=== PATIENT | female | born 1975 | race Caucasian/White ===

== ENCOUNTER 2021-01-11 09:24 | Emergency (ER) | payer OTHER, SELFPAY ==
--- NOTE | ~2021-01-11 | US_ITS ---
EXAMINATION: US venous doppler [facility] DATE: 01/11/2021 10:27 INDICATION: Left lower limb pain TECHNIQUE: Tong scale images without and with compression and Doppler images of the left lower extrem ity veins were obtained. COMPARISON: None FINDINGS: The left common femoral vein, profunda femoral vein, femoral vein, popliteal vein, peroneal trunk, posterior tibial veins, and greater saphenous vein are patent. There is thrombosis in a super ficial subcutaneous vein of the posterior calf. IMPRESSION: 1. No evidence of deep venous thrombosis. 2. Thrombosis in a superficial subcutaneous vein of the posterior calf. Reviewed, dictated and finalized at location A.
[2021-01-11 09:34] VITALS: BP 105/80; PULSE 74; RESP 17; TEMP 36.8; O2SAT 99
--- NOTE | 2021-01-11 09:50 | ED.LOWEXIN ---
HPI - Extremity Injury (Lower) General Chief Complaint: Extremity Injury, Lower Stated Complaint: ? L calf infection Time Seen by Provider: 01/11/21 09:39 Source: patient Mode of arrival: ambulatory Limitations: no limitations History of Present Illness HPI Narrative: Patient is a 45-year-old female who presents complaining of left lower extremity pain. Patient reports having endovenous laser ablation on 12/28/2020. She reports follow-up office visit last week. She reports increased pain, mild swelling and tenderness with palpation x1 day. Patient reports attempting to follow-up with Dr. Hoffmann who is out of the office at this time. She reports increased swelling left ambulation. She denies all other complaints at this time. She denies significant medical history. Related Data Allergies Allergy/AdvReac Type Severity Reaction Status Date / Time codeine Allergy Unknown Nausea Verified 01/11/21 09:43 Review of Systems Review of Systems: CONSTITUTIONAL: Denies fever, chills, or sweats. EYES: Denies visual changes, redness, or discharge. ENT: Denies rhinorrhea, congestion, sore throat, or otalgia. CARDIOVASCULAR: Denies chest pain, palpitations, or edema. RESPIRATORY: Denies cough or dyspnea. GASTROINTESTINAL: Denies abdominal pain, nausea, vomiting, or diarrhea. GENITOURINARY: Denies dysuria or hematuria. SKIN: Denies rash or itching. MUSCULOSKELETAL: Left lower extremity pain NEUROLOGIC: Denies headache, numbness, dizziness, or weakness. PSYCHIATRIC: Denies anxiety or depression. PMFSH Past Medical History Medical History Anxiety Social History Social History (Updated 01/11/21 @ 11:28 by KARIME Bajwa) Smoking status: Former smoker Smoking end date: 06/11/97 Alcohol intake: current Alcohol use details: Occasional Substance use: never Living arrangements: with family Comments At the time of signature, I have reviewed and agree with nursing past medical, surgical, social, and family history unless otherwise noted. Please see nursing chart for further information. There is no relevant family history pertinent to the presenting complaint. Exam Narrative: GENERAL: Well-appearing, well-nourished, and in no acute distress. HEAD: Normocephalic, atraumatic. EYES: EOMI. No redness or drainage. Conjunctiva are normal. ENT: Mucous membranes pink and moist. CHEST: No respiratory distress. HEART: Regular rate and rhythm. No murmur appreciated. Normal peripheral pulses. EXTREMITIES: Normal range of motion. Mild edema and tenderness with palpation to LLE, no warmth or erythema noted. SKIN: Warm, dry, no rash. NEURO: No focal deficits. Alert and oriented x3. Gait steady. PSYCH: Normal affect. No signs of depression or anxiety. Course Vital Signs Vital signs: Vital Signs Temperature 36.8 C 01/11/21 09:34 Pulse Rate 74 01/11/21 09:34 Respiratory Rate 17 01/11/21 09:34 Blood Pressure 105/80 01/11/21 09:34 Pulse Oximetry 99 01/11/21 09:34 Temperature 36.8 C 01/11/21 09:34 Pulse Rate 74 01/11/21 09:34 Respiratory Rate 17 01/11/21 09:34 Blood Pressure 105/80 01/11/21 09:34 Pulse Oximetry 99 01/11/21 09:34 Reviewed MDM - Extremity Injury (Lower) MDM Narrative Medical decision making narrative: Venous ultrasound of left lower extremity is negative for DVT. Venous ultrasound reports thrombosis in a superficial subcutaneous vein of the posterior calf. Discussed results with Maria L Alonzo PA-C of Dr. Hoffmann's office who reports normal findings and has no concerns. SCOT Lisa suggests patient use LAUREN and elevate extremity and call office today for follow up appointment. Patient is afebrile, nontoxic in appearance and labs are unremarkable. Patient is stable for discharge to home with outpatient follow-up as discussed. Differential Diagnosis Differential diagnosis: Likely other (Sprain, strain, fra
[2021-01-11 10:55] LABS: Basophils Percent Auto 0.6 % (0.2-1.2); Eosinophils Absolute Auto 0.3 K/mm3 (0-0.3); Eosinophils Percent Auto 5.3 % (0-4.4); Hematocrit 43.1 % (37.0-47.0); Hemoglobin 14.4 g/dL (12.0-15.0); Immature Granulocyte Absolute 0.02 K/mm3 (0.00-0.031); Immature Granulocyte Percent A 0.4 % (0-0.5); Lymphocytes Percent Auto 21.3 % (18.3-44.2); Mean Corpuscular HGB Conc 33.4 g/dl (32-36); Mean Corpuscular Hemoglobin 29.1 pg (26-34); Mean Corpuscular Volume 87.1 fl (80-100); Mean Platelet Volume 9.2 fl (7.4-10.4); Monocytes Absolute Auto 0.3 K/mm3 (0.1-0.6); Monocytes Percent Auto 6.6 % (2.6-8.5); Neutrophils Absolute Auto 3.1 K/mm3 (1.3-6.7); Neutrophils Percent Auto 65.8 % (45.5-73.1); Platelet Count Result 317 k/mm3 (150-375); Red Blood Count 4.95 M/mm3 (4.2-5.4); Red Cell Distribution Width 12.4 % (11.5-14.5); White Blood Count 4.7 K/mm3 (4.5-10.0)
[2021-01-11 11:09] LABS: Alanine Aminotransferase 14 U/L (4-35); Albumin Level 4.5 g/dL (3.5-5.1); Alkaline Phosphatase 54 U/L (38-126); Anion Gap 9 mmol/L (8-16); Aspartate Amino Transferase 22 U/L (14-36); Bilirubin,Total 0.5 mg/dL (0.2-1.3); Blood Urea Nitrogen 18 mg/dL (7-17); Calcium 9.9 mg/dL (8.4-10.2); Carbon Dioxide 23 mmol/L (22-30); Chloride 104 mmol/L (98-107); Estimated CRCL calculation 107 ml/min; Estimated Glomerular Filt Rate > 60; Glucose 96 mg/dL (65-110); Potassium 4.8 mmol/L (3.4-5.0); Sodium 136 mmol/L (137-145)
[2021-01-11 11:30] VITALS: BP 110/79; PULSE 70; RESP 16; O2SAT 98
== END 2021-01-11 12:34 | disposition home or self-care (01) ==
PROVIDERS: Emergency Provider Nurse Practitioner; PCP Physician Assistant
DX: M79.662 Pain in left lower leg (principal)
CPT/HCPCS: 36415; 80053; 85025; 93971; 99284

== ENCOUNTER 2024-04-03 06:48 | Day surgery (SDC) | payer OTHER, SELFPAY ==
[2023-12-04 10:53] VITALS: BMI 29.0
[2024-04-03 07:43] VITALS: BP 120/88; PULSE 73; RESP 14; TEMP 36.4; O2SAT 100
[2024-04-03] MEDS: LACTATED RINGERS 1,000 ML 150 ML IV CONT (07:54)
--- NOTE | 2024-04-03 07:56 | PM.HPGS ---
History of Present Illness History of Present Illness Consent: Risks, benefits, and alternatives have been discussed and questions answered. Patient agrees to proceed with procedure. Chief complaint: Neoplasm Screening Narrative: Clementina Armenta is a 48 year old female presents for screening colonoscopy. Patient's current weight appetite and bowel movements are normal. She denies abdominal pain. Patient has had no bleeding. Her family history is noncontributory. Review of Systems Review of Systems: All systems reviewed & are unremarkable except as noted in HPI and below PMFSH Past Medical History Medical History (Updated 04/03/24 @ 07:58 by Isac Mccarty MD) Anxiety Depression Screening mammogram, encounter for Varicose vein of leg Surgical History Surgical History H/O knee surgery Family History Family History Mother Breast cancer History of varicose veins Social History Social History (Updated 11/20/23 @ 14:12 by Linda Rose MA) Smoking status: Former smoker Tobacco type: cigarettes Smoking end date: 06/11/97 Alcohol intake: current Drinks per week: 3 Alcohol use details: Occasional Substance use: never Substance use type: does not use Do You Feel Safe in your Home?: Yes Lack of Transportation: No Lack of Food: Never True Current Housing: I Have Housing Concerned About Future Housing: No Difficulty Paying Gas/Electric Bills: No Difficulty Paying for Meds: No Currently Unemployed: YES Education: Master's Degree or Higher Difficulty w/ Childcare or Family Care: No Living arrangements: with family Additional living arrangements comments: Occupation/Education: occupation Additional occupation/education comments: teacher Gender identity (if verbalized by the patient): Female Sexual Orientation (if Verbalized by the Patient): Straight or Heterosexual Spiritual care concerns: No Meds Home Medications and Allergies Home Medications Medication Instructions Recorded Confirmed Type bupropion HCl 100 mg tablet,12 hr 100 mg PO DAILY 11/20/23 04/03/24 History sustained-release dexmethylphenidate 15 mg 15 mg PO DAILY 11/20/23 04/03/24 History capsule,extended release [id number] norethindrone 1 mg-ethinyl 1 tablet PO DAILY #84 tabs 11/20/23 04/03/24 Rx estradiol 20 mcg (21)-iron 75 mg (7) tablet (Blisovi Fe 06/30 (28)) sertraline 50 mg tablet 50 mg PO DAILY 11/20/23 04/03/24 History Allergies Allergy/AdvReac Type Severity Reaction Status Date / Time No Known Allergies Allergy Verified 04/03/24 07:41 Vital Signs Vital Signs - 24 hr 04/03/24 07:43 Temperature 97.6 F Pulse Rate 73 Respiratory Rate 14 Blood Pressure 120/88 Pulse Oximetry 100 Oxygen Delivery Room Air Exam Narrative: Physical exam reveals patient be alert. Vital signs stable. HEENT is unremarkable. Patient is anicteric. Lungs are clear to auscultation and to percussion. Heart is without murmur or extra sounds. Abdomen bowel sounds are present soft nontender with no organomegaly. Digital renal rectal exam is normal. Assessment and Plan Assessment and plan (1) Screen for colon cancer: Code(s): Z12.11 - Encounter for screening for malignant neoplasm of colon Status: Acute Assessment and Plan: Patient presents today for screening colonoscopy. She appears to be at average risk. Further recommendations may be given after endoscopy.
--- NOTE | 2024-04-03 08:58 | WPDANESEPPF ---
Anes - Initial Pre Proc Eval Procedure: Operation Date: 04/03/24 09:00 Proposed Procedures p Screening Colonoscopy - Isac Mccarty MD Date/Time: 04/03/24 08:58 Surgeon: Isac Mccarty MD Pre Op Diagnosis: Neoplasm screening Pre Op Diagnosis: Neoplasm Screening Patient Data Age: 48 Gender: F Height: 1.65 m Weight: 81.9 kg Last Vital Signs Temp 36.4 C 04/03/24 07:43 Pulse 73 04/03/24 07:43 Resp 14 04/03/24 07:43 BP 120/88 04/03/24 07:43 Pulse Ox 100 04/03/24 07:43 O2 Del Method Room Air 04/03/24 07:43 Allergies Allergy/AdvReac Type Severity Reaction Status Date / Time No Known Allergies Allergy Verified 04/03/24 07:41 Home Medications Medication Instructions Recorded Confirmed Type bupropion HCl 100 mg tablet,12 hr 100 mg PO DAILY 11/20/23 04/03/24 History sustained-release dexmethylphenidate 15 mg 15 mg PO DAILY 11/20/23 04/03/24 History capsule,extended release [id number] norethindrone 1 mg-ethinyl 1 tablet PO DAILY #84 tabs 11/20/23 04/03/24 Rx estradiol 20 mcg (21)-iron 75 mg (7) tablet (Blisovi Fe 06/30 (28)) sertraline 50 mg tablet 50 mg PO DAILY 11/20/23 04/03/24 History : patient denies HCG: negative Patient hx anesthesia problems: none Family hx anesthesia problems: none Results Review: All pre-operative results and documents have been reviewed as part of the pre-operative evaluation. [facility] Past Medical History Medical History Anxiety Depression Screening mammogram, encounter for Varicose vein of leg Surgical History Surgical History H/O knee surgery Family History Family History Mother Breast cancer History of varicose veins Social History Social History Smoking status: Former smoker Tobacco type: cigarettes Smoking end date: 06/11/97 Alcohol intake: current Drinks per week: 3 Alcohol use details: Occasional Substance use: never Substance use type: does not use Do You Feel Safe in your Home?: Yes Lack of Transportation: No Lack of Food: Never True Current Housing: I Have Housing Concerned About Future Housing: No Difficulty Paying Gas/Electric Bills: No Difficulty Paying for Meds: No Currently Unemployed: YES Education: Master's Degree or Higher Difficulty w/ Childcare or Family Care: No Living arrangements: with family Additional living arrangements comments: Occupation/Education: occupation Additional occupation/education comments: teacher Gender identity (if verbalized by the patient): Female Sexual Orientation (if Verbalized by the Patient): Straight or Heterosexual Spiritual care concerns: No Anes - Eval Final PreProcedure Day of Procedure 04/03/24 08:58 Patient weight: obese Heart: regular rate and rhythm Lungs: normal air movement Airway: Mallampati scale class II Neurological: alert and oriented Last oral intake: >/= 8 hours ASA classification: II Emergent: no Anesthetic plan: proceed Results Review: All pre-operative results and documents have been reviewed as part of the pre-operative evaluation. Informed Consent: The patient's anesthetic plan and its attendant risks and benefits were discussed with the patient/family/POA. Questions were solicited and answers provided to the satisfaction of the patient/family/POA.
[2024-04-03 09:25] VITALS: BP 116/74; PULSE 75; RESP 14; O2SAT 100
[2024-04-03 09:35] VITALS: BP 105/68; PULSE 64; RESP 15; O2SAT 100
[2024-04-03 09:45] VITALS: BP 112/75; PULSE 62; RESP 14; O2SAT 100
--- NOTE | 2024-04-03 12:39 | WPDANESPN ---
Anes - Prog Note Post-Op Date/Time: 04/03/24 12:39 Cardiovascular status: normal Respiratory status: normal Airway patency: baseline Mental status: baseline Post-Op hydration status: normal Vital Signs: Last Vital Signs Temp 36.4 C 04/03/24 07:43 Pulse 62 04/03/24 09:45 Resp 14 04/03/24 09:45 BP 112/75 04/03/24 09:45 Pulse Ox 100 04/03/24 09:45 O2 Del Method Room Air 04/03/24 09:45 Pain Score (VAS): 0 I/O: Intake & Output 04/02/24 04/03/24 04/03/24 23:59 07:59 15:59 Intake Total 800 Balance 800 Post-procedural complaints: none Patient Feedback: Patient satisfied with anesthetic care. Other Findings: Patient vital signs back to baseline. Patient denies nausea and vomiting. Patient's pain under control. Patient OK for discharge.
== END 2024-04-03 09:58 | disposition home or self-care (01) ==
PROVIDERS: PCP Physician Assistant; Visit Provider Internal Medicine Gastroenterology
PROC: 0DJD8ZZ Inspection of Lower Intestinal Tract, Via Natural or Artificial Opening Endoscopic (ICD-10-PCS; CPT 45378; principal; 2024-04-03 09:00)
DX: Z12.11 Encounter for screening for malignant neoplasm of colon (principal); K64.8 Other hemorrhoids
CPT/HCPCS: 45378

== ENCOUNTER 2025-02-17 08:00 | Outpatient (CLI) | payer OTHER, SELFPAY ==
--- OUTSIDE RECORDS SUMMARY | 2025-02-17 08:26 | XMS_ITS | Encounter Summary ---
Author Organization [facility] Address [address] [place] [address] Care Team Providers Care Distribution A Class Lineman Name Role Phone Adrain Malin MD Primary Care Provider [phone] Zohreh Montgomery MD Primary Care Provider [phone] Encounter Details Date Type Department Care Team (Late st Contact Info) Description 08/01/2016 Telephone [facility] at [address] [address] [place] Social History Tobacco Use Types Packs/Day Years Used Date Smoking Tobacco: Never Assessed Comments Yes Sex and Gender Information Value Date Recorded Sex Assigned at Not on file Legal Sex Female 11:34 AM CDT Gender Identity Not on file Sexual Orientation Not on file documented as of this encounter Plan of Treatment Not on file documented as of this encounter Visit Diagnoses Not on filedocumented in this encounter Care Teams Distribution A Class Lineman Relationship Specialty Start Date End Date Adrian Malin MD [address] [place] [address] PCP - General Obstetrics and Gynecology 08/30/16 1/2 12/26 Zohreh Montgomery MD [address] [place] [address] PCP - General Family Medicine 07/08/17 documented as of this encounter
--- OUTSIDE RECORDS SUMMARY | 2025-02-17 08:26 | XMS_ITS | Clinical Summary ---
Author Organization [facility] Address [address] [place] [address] Care Team Providers Care Manager Dialysis Name Role Phone Zohreh Montgomery MD Primary Care Provider [phone] Source Comments [facility],non-owned Affiliates and Associated Physician Practices is amultiple site organization consisting of ambulatory clinics and hospital sitesin [place], [place], [place] and [place]. This disclosure is being madepursuant to the Care Everywhere program and may not contain all information available regarding this patient. Last updated 18.[facility] Allergies Active Allergy Reactions Criticality Noted Date Comments Codeine Nausea and/or Vomiting 03/31/2013 Medications * Be aware that medications may not be up to date on this document. Alwaysverify current medications with the patient. SERTRALINE HCL PO Active olopatadine (PATADAY) 0.2 % ophthalmic solution Instill 1 drop into both eyes once daily 1 bottles 01/27/2018 Active Active Problems Problem Noted Date Diagnosed Date Encounter for anatomic survey 05/23/2016 AMA (advanced maternal age) multigravida 35+ Advanced maternal age (AMA) in 013 Sequential screen 03/31/2013 Encounter for supervision of other normal pregna ncy 03/31/2013 Overview (04/18/2015): Family History Medical History Relation Name Comments Multiple Sclerosis Father Cancer - Breast Mother Hyperlipidemia Mother Hypertension Mother Relation Name Status Comments Father Mother Alive Social History Tobacco Use Types Packs/Day Years Used Date Smoking Tobacco: Former Smokeless Tobacco: Never Comments No Sex and Gender Information Value Date Recorded Sex Assigned at Not on file Legal Sex Female 11:34 AM CDT Gender Identity Not on file Sexual Orientation Not on file Last Filed Vital Signs Vital Sign Reading Time Taken Comments Blood Pressure 106/68 01/27/2018 12:20 PM CDT Pulse 66 01/27/2018 12:20 PM CDT Temperature 37.1 C (98.7 F) 08/01/2017 11:17 AM REGULATORY COMPLIANCE SPECIALIST Respiratory Rate 16 08/01/2017 11:17 AM REGULATORY COMPLIANCE SPECIALIST Oxygen Saturation 98% 01/27/2018 12:20 PM CDT Inhaled Oxygen Concentration - - Weight 76.2 kg (168 lb) 01/27/2018 12:20 PM CDT Height 165.1 cm (5' 5) 01/27/2018 12:20 PM CDT Body Mass Index 27.96 01/27/2018 12:20 PM CDT Plan of Treatment Health Maintenance Due Date Last Done Comments COLOGUARD (AGES 45-75) - COL ON CA SCREENING 1977 COLON MONITORING 1977 COLONOSCOPY - COLON CA SCREENING 1977 CT COLONOGRAPHY - COLON CA SCREENING 1977 Colorectal Cancer Screening 1977 FIT - COLON CA SCREENING 1977 FLEX SIG - COLON CA SCREENING 1977 LIPID TESTING 1977 MAMMOGRAM 1977 HIV SCREENING 1992 HEPATITIS C SCREENING 08/04/1995 DTAP/TDAP/TD VACCINES (1 - Tdap) 1996 HEPATITIS B VACCINE (1 of 3 - 19+ 3-dose series) 1996 SCREENING FOR DIABETES 01/27/2018 DEPRESSION SCREENING 06/11/2024 COVID-19 VACCINE (1 - 2023-2 5 season) 2025 INFLUENZA VACCINE (#1) 2025 ZOSTER VACCINE (1 of 2) 2027 HIB VACCINE Aged Out No longer eligi ble based on patient's age to complete this topic HPV VACCINE Aged Out No longer eligi ble based on patient's age to complete this topic MENINGOCOCCAL (Group B) VACC INE SHARED DECISION-MAKING Aged Out No longer eligibl e based on patient's age to complete this topic MENINGOCOCCAL GROUPS A/C/Y/W VACCINE Aged Out No longer eligible b ased on patient's age to complete this topic PNEUMOCOCCAL VACCINE Aged Out No long er eligible based on patient's age to complete this topic Insurance [facility] Care Teams Manager Dialysis Relationship Specialty Start Date End Date Zohreh Montgomery MD [address] [place] [address] PCP - General Family Medicine 07/08/17
[2025-02-17 09:07] LABS: Beta HCG Quantitative < 2.39 mIU/ML
== END 2025-02-17 08:01 | disposition home or self-care (01) ==
LOC: ANHLAB 08:01
PROVIDERS: PCP Physician Assistant; Visit Provider Obstetrics & Gynecology
DX: N93.9 Abnormal uterine and vaginal bleeding, unspecified (principal)
CPT/HCPCS: 36415; 84702